=== PATIENT | male | born 1955 | race African-American/Black ===

== ENCOUNTER 2017-10-26 23:02 | Inpatient (IN) | payer MEDICAID ==
[~2017-10-26] VITALS: Ht 182.9 cm; Wt 108.5 kg
[~2017-10-26 23:02] MED LIST: BC FPOW12; CLIN1CAP6 PO; CLON0.2T PO; CORE25TA PO; LISI-363 PO; NORT25CA PO; POTA-243 PO; ULTR50TA PO
[2017-10-26 23:06] VITALS: BP 220/112; PULSE 122; RESP 16; TEMP 98.3; O2SAT 100
[2017-10-26 23:26] VITALS: RESP 19; O2SAT 97
[2017-10-26] MEDS ORDERED: LORazepam 2 MG/ML VIAL IV PUSH ONE (23:30)
[2017-10-26] MEDS: NITROGLYCERIN 0.4 MG SL 25 TABS/BTL SL SCH ×3 (23:32→23:40)
[2017-10-26 23:36] LABS: AUTOMATED NEUTROPHIL # 3.1 TH/MM3 (1.8-7.7); BASOPHIL % 0.7 % (0.0-2.0); EOSINOPHIL % 0.1 % (0.0-4.0); HEMATOCRIT 49.2 % (39.0-51.0); HEMOGLOBIN 16.8 GM/DL (13.0-17.0); LYMPH % 25.4 % (9.0-44.0); LYMPHOCYTE # 1.2 TH/MM3 (1.0-4.8); MEAN CELL VOLUME 97.8 FL (80.0-100.0); MEAN CORPUSCULAR HEMOGLOBIN 33.4 PG (27.0-34.0); MEAN CORPUSCULAR HGB CONC 34.2 % (32.0-36.0); MEAN PLATELET VOLUME 7.4 FL (7.0-11.0); MONO % 7.6 % (0.0-8.0); MONOCYTE # 0.4 TH/MM3 (0-0.9); NEUT % 66.2 % (16.0-70.0); PLATELET COUNT 225 TH/MM3 (150-450); RED BLOOD COUNT 5.03 MIL/MM3 (4.50-5.90); WHITE BLOOD COUNT 4.7 TH/MM3 (4.0-11.0)
--- NOTE | 2017-10-26 23:37 | PD ---
HPI Chief Complaint: Chest Pain Time Seen by Provider: 23:20 Travel History International Travel<30 days: No Contact w/Intl Traveler<30days: No History of Present Illness HPI 61yo M with PMH of alcohol abuse, HTN, CHF presents to the ED with c/o midsternal chest pain today. Said it radiated up left neck. Also with intermittent bilateral arm numbness for 1 week. +Generalized fatigue. Denies any fever, trauma, sob, n/v, abdominal pain, current focal weakness or numbness. Pt is tearful and said he has not taken his medication for 1 month. Suppose to be on clonidine 0.2mg PO. 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 Last alcohol intake was this morning. Pt also has chronic lower back pain and follows with pain management. PFSH Past Medical History Anxiety: Yes Heart Rhythm Problems: No Cancer: No Cardiovascular Problems: Yes (ENLARGED HEART) High Cholesterol: Yes Chest Pain: No Congestive Heart Failure: Yes Endocrine: No Gout: Yes Genitourinary: No Hypertension: Yes Immune Disorder: No Musculoskeletal: No Neurologic: No Psychiatric: No Reproductive: No Respiratory: No Past Surgical History Abdominal Surgery: Yes (UMBILICAL HERNIA REPAIR) Cardiac Surgery: No Ear Surgery: No Endocrine Surgery: No Eye Surgery: No Genitourinary Surgery: No Gynecologic Surgery: No Oral Surgery: No Thoracic Surgery: No Other Surgery: Yes (umbilical hernia,varicose vein) Social History Alcohol Use: Yes Tobacco Use: No Substance Use: No Allergies-Medications (Allergen,Severity, Reaction): Coded Allergies: No Known Allergies (Verified Allergy, Unknown, 10/27/17) Reported Meds & Prescriptions Reported Meds & Active Scripts Active Ultram (Tramadol HCl) 50 Mg Tab 50 Mg PO BID PRN Clindamycin Hcl (Clindamycin HCl) 300 Mg Cap 300 Mg PO QID K-Dur (Potassium Chloride) 10 Meq Tabcr 10 Meq PO DAILY Lisinopril 20 Mg Tab 20 Mg PO DAILY Nortriptyline Hcl (Nortriptyline HCl) 25 Mg Cap 25 Mg PO HS Coreg 25 mg (Carvedilol) 25 Mg Tab 25 Mg PO BID Reported Clonidine Hcl (Clonidine HCl) 0.2 Mg Tab 0.2 Mg PO BID Bc Fast Pain Relief (Udtkbel-Yprjqgdllqvf-Wsbqppgy) Relief Pow Review of Systems Except as stated in HPI: all other systems reviewed are Neg Physical Exam Narrative GENERAL: 61yo M in moderate distress. SKIN: Focused skin assessment warm/dry. HEAD: Atraumatic. Normocephalic. EYES: Pupils equal and round. No scleral icterus. No injection or drainage. ENT: No nasal bleeding or discharge. Mucous membranes pink and moist. NECK: Trachea midline. No JVD. CARDIOVASCULAR: Sinus tachycardia at 120s. RESPIRATORY: No accessory muscle use. Clear to auscultation. Breath sounds equal bilaterally. BACK: +lower back pain L5. GASTROINTESTINAL: Abdomen soft, non-tender, nondistended. MUSCULOSKELETAL: No obvious deformities. No clubbing. No cyanosis. No edema. NEUROLOGICAL: Awake and alert. No obvious cranial nerve deficits. Motor grossly within normal limits in all extremities. Sensation intact. Normal speech. PSYCHIATRIC: Tearful. Data Data Last Documented VS Vital Signs Date Time Temp Pulse Resp B/P (MAP) Pulse Ox O2 Delivery O2 Flow Rate FiO2 10/26/17 23:26 19 97 Room Air 10/26/17 23:06 98.3 122 Orders Orders Basic Metabolic Panel (Bmp) (10/26/17 23:22) B-Type Natriuretic Peptide (10/26/17 23:22) Complete Blood Count With Diff (10/26/17 23:22) Magnesium (Mg) (10/26/17 23:22) Prothrombin Time / Inr (Pt) (10/26/17 23:22) Act Partial Throm Time (Ptt) (10/26/17 23:22) Troponin I (10/26/17 23:22) Chest, Single Ap (10/26/17 23:22) Ecg Monitoring (10/26/17 23:22) Bilateral Bp Monitoring (10/26/17 23:22) Iv Access Insert/Monitor (10/26/17 23:22) Oximetry (10/26/17 23:22) Nitroglycerin Sl (Nitrostat Sl) (10/26/17 23:30) Lorazepam Inj (Ativan Inj) (10/26/17 23:30) Alcohol (Ethanol) (10/26/17 23:22) Cta Thor Abd Aorta W Iv C W3d (10/26/17 23:24) Potassium Chloride (Kcl) (10/27/17 01:00) Sodium Chlor 0.9% 1000 Ml Inj (Ns 1000 M (10/27/17 01:00) Thiamine Inj (Thiamine Inj) (10/27/17 01:00) Iohexol 350 Inj (Omnipaque 350 Inj) (10/27/17 01:18) Aspirin (Aspirin) (10/27/17 02:00) Admit Order (Ed Use Only) (10/27/17 02:23) Labs Laboratory Tests Test 10/26/17 23:27 10/26/17 23:55 White Blood Count 4.7 TH/MM3 Red Blood Count 5.03 MIL/MM3 Hemoglobin 16.8 GM/DL Hematocrit 49.2 % Mean Corpuscular Volume 97.8 FL Mean Corpuscular Hemoglobin 33.4 PG Mean Corpuscular Hemoglobin Concent 34.2 % Red Cell Distribution Width 16.0 % Platelet Count 225 TH/MM3 Mean Platelet Volume 7.4 FL Neutrophils (%) (Auto) 66.2 % Lymphocytes (%) (Auto) 25.4 % Monocytes (%) (Auto) 7.6 % Eosinophils (%) (Auto) 0.1 % Basophils (%) (Auto) 0.7 % Neutrophils # (Auto) 3.1 TH/MM3 Lymphocytes # (Auto) 1.2 TH/MM3 Monocytes # (Auto) 0.4 TH/MM3 Eosinophils # (Auto) 0.0 TH/MM3 Basophils # (Auto) 0.0 TH/MM3 CBC Comment DIFF FINAL Differential Comment Prothrombin Time 9.4 SEC Prothromb Time International Ratio 0.9 RATIO Activated Partial Thromboplast Time 23.9 SEC B-Type Natriuretic Peptide 81 PG/ML Blood Urea Nitrogen 9 MG/DL Creatinine 0.87 MG/DL Random Glucose 95 MG/DL Calcium Level 7.9 MG/DL Magnesium Level 2.1 MG/DL Sodium Level 140 MEQ/L Potassium Level 2.9 MEQ/L Chloride Level 102 MEQ/L Carbon Dioxide Level 27.4 MEQ/L Anion Gap 11 MEQ/L Estimat Glomerular Filtration Rate 108 ML/MIN Troponin I 0.19 NG/ML Ethyl Alcohol Level LESS THAN 3 MG/DL [facility] Medical Decision Making Medical Screen Exam Complete: Yes Emergency Medical Condition: Yes Interpretation(s) EKG: Sinus tachycardia at 123bpm. LAD. Q wave III, aVF which are not new. Differential Diagnosis ACS vs. aortic dissection vs. hypertensive emergency vs. pneumonia vs. CHF exacerbation vs. alcohol withdrawal Narrative Course 61yo M with chest pain radiating to left neck. Pt also said he has intermittent numbness in bilateral arms but not right now for about 1 week. He is noncompliant with his medications. 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 Labs reviewed, no leukocytosis. H/H normal. Hypokalemia at 2.9, replaced orally. Troponin is elevated at 0.19. May be related to rona hypertension, will trend. Pt given sublingual nitro and BP went from 220/112 to 141/79. BNP normal. Pt denies any sob and is saturating at 99-100% on RA. Pt initially tachycardic at 120s and drinks alcohol everyday. Last drink was this morning and pt seems a little tremulous so given ativan 1mg IV. HR improved to 110bpm. Pt reevaluated at bedside and denies any chest pain. Pt also appears mildly dehydrated so given NS IVF. CXR negative. Alcohol less than 3. Pt given thiamine. Magnesium normal. CTA showed no evidence of aortic dissection or aneurysm. Atherosclerosis. Few pulmonary nodules, recommend CT chest in 12 months. Pt given aspirin. Pt had cardiac cath in 2011 that showed severely diminish LV dysfunction and nonsignificant CAD. Pt currently denies any chest pain. Discussed with Dr. Gerber and accepted to her service. Diagnosis Primary Impression: Hypertensive emergency Additional Impression: Chest pain Qualified Codes: R07.9 - Chest pain, unspecified Admitting Information Admitting Physician Requests: Kavitha Ansari DO Oct 26, 2017 23:37
[2017-10-26 23:51] LABS: INTERNATIONAL NORMALIZED RATIO 0.9 RATIO; PROTHROMBIN TIME - PATIENT 9.4 SEC (9.8-11.6)
--- NOTE | 2017-10-26 23:56 | RADRPT ---
EXAM DATE/TIME: 10/26/2017 23:42 [facility] COMPARISON: No previous studies available for comparison. INDICATIONS : Chest pains. MEDICAL HISTORY : None. SURGICAL HISTORY : None. ENCOUNTER: Initial ACUITY: 1 day PAIN SCORE: 0/10 LOCATION: Bilateral chest FINDINGS: Aortic calcification is noted. A single view of the chest demonstrates the lungs to be symmetrically aerated without evidence of mas s, infiltrate or effusion. The cardiomediastinal contours are unremarkable. Osseous structures are intact. CONCLUSION: No acute disease. Teja Stephens MD on October 26, 2017 at 23:53 Board Certified Radiologist. This report was verified electronically.
[2017-10-27] VITALS: BP 186/109; PULSE 102; RESP 16; O2SAT 100
[2017-10-27 00:35] LABS: BICARBONATE 27.4 MEQ/L (21.0-32.0); BLOOD UREA NITROGEN 9 MG/DL (7-18); CALCIUM 7.9 MG/DL (8.5-10.1); CHLORIDE 102 MEQ/L (98-107); CREATININE 0.87 MG/DL (0.60-1.30); GLOMERULAR FILTRATION RATE 108 ML/MIN (>89); GLUCOSE,RANDOM 95 MG/DL (74-106); MAGNESIUM 2.1 MG/DL (1.5-2.5); SODIUM (NA) 140 MEQ/L (136-145); TROPONIN I 0.19 NG/ML (0.02-0.05)
[2017-10-27] MEDS: SODIUM CHLOR 0.9% 1000 ML INJ 1,000 ML IV ONE ×2 (01:00→02:05)
[2017-10-27] MEDS ORDERED: POTASSIUM CHLORIDE 20 MEQ CONTROLLED RELEASE TAB PO ONE (01:00)
[2017-10-27] MEDS ORDERED: THIAMINE INJ 100 MG in SODIUM CHLORIDE 0.9% INJ 100 ML IV ONE (01:00)
[2017-10-27] MEDS ORDERED: IOHEXOL 350 MG/ML 10 ML VIAL (for RAD DIAG) IVCONTRAST ONE (01:18)
--- NOTE | 2017-10-27 01:45 | RADRPT ---
EXAM DATE/TIME: 10/27/2017 01:17 [facility] COMPARISON: No previous studies available for comparison. INDICATIONS : Chest pain, hypertensive, intermittent bilateral upper arm numbness. IV CONTRAST: 100 cc Omnipaque 350 (iohexol) IV RADIATION DOSE: 9.69 CTDIvol (mGy) MEDICAL HISTORY : Cardiovascular disease. Stroke Hypertension. SURGICAL HISTORY : Umbilical hernia repair. ENCOUNTER: Initial ACUITY: 1 day PAIN SCALE: 5/10 LOCATION: Bilateral chest TECHNIQUE: Volumetric scanning was performed using a multi-row detector CT scanner. The data was post processed with a variety of visualization algorithms including full volume maximum intensity projection, multi -planar sliding thin slab reformation, curved planar reformation, and surface rendering techniques. Using automated exposure control and adjustment of the mA and/or kV according to patient size, radiat ion dose was kept as low as reasonably achievable to obtain optimal diagnostic quality images. DICOM format image data is available electronically for review and comparison. FINDINGS: LUNGS: Noncalcified nodule in the right lower lobe measuring 4.4 mm on axial image 57. Tiny right lower lobe 2.7 mm nodule on image 54. Calcified granuloma right upper lobe measuring 4.3 mm on image 35. MEDIASTINUM: No abnormally enlarged lymph nodes by CT criteria. No axillary or hilar abnormalities are identified. ABDOMEN: The liver and spleen are free of focal defects. The gallbladder and pancreas demonstrate no abnormali ty. The adrenal glands are normal. The kidneys demonstrate no evidence of solid renal mass or hydrone phrosis. No free fluid or abdominal masses are identified. No para-aortic adenopathy is seen. Small f at containing umbilical hernia. PELVIS: No evidence of free fluid or pelvic mass. No abnormally enlarged inguinal or retroperitoneal lymph no beulah are present. The bladder is unremarkable. THORACIC AORTA: There is no evidence for aneurysm. Atherosclerotic calcifications of the aorta are noted. Aberrant ri ght subclavian artery is seen. ABDOMINAL AORTA: The aorta is normal in caliber without aneurysm or dissection. The renal arteries are patent bilater ally. The proximal celiac and superior mesenteric arteries are patent and normal in diameter. PELVIC VESSELS: The internal iliac and external iliac vessels are patent without aneurysm or stenosis. CONCLUSION: 1. No evidence for aortic dissection or aneurysm. 2. Atherosclerosis. 3. Aberrant right subclavian artery. 4. A few scattered pulmonary nodules are present. Followup CT chest in 12 months recommended. Teja Stephens MD on October 27, 2017 at 1:41 Board Certified Radiologist. This report was verified electronically.
[2017-10-27] MEDS ORDERED: ASPIRIN 325 MG TAB PO ONE (02:00)
[2017-10-27] MEDS ORDERED: NALOXONE HCL 0.4 MG/ML AMP IV PUSH PRN (02:30)
[2017-10-27] MEDS ORDERED: SODIUM CHLORIDE 0.9% FLUSH 10 ML FLUSH IV FLUSH PRN (02:30)
[2017-10-27 03:00] VITALS: BP 141/79; PULSE 98; RESP 16; O2SAT 100
[2017-10-27] MEDS ORDERED: NITROGLYCERIN 0.4 MG SL 25 TABS/BTL SL PRN (03:00)
[2017-10-27] MEDS ORDERED: ENOXAPARIN SODIUM 120 MG/0.8 ML SYRINGE SQ ONE (03:00)
[2017-10-27 06:28] LABS: TROPONIN I 0.24 NG/ML (0.02-0.05)
[2017-10-27] MEDS ORDERED: CLON0.2T PO (06:31)
[2017-10-27] MEDS ORDERED: LISI-515 PO (06:31)
[2017-10-27] MEDS ORDERED: CORE25TA PO (06:31)
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
[2017-10-27 08:10] VITALS: BP 182/89; PULSE 104; RESP 20; TEMP 98.8; O2SAT 98
[2017-10-27] MEDS ORDERED: DILA4TAB10 PO (10:13)
[2017-10-27] MEDS ORDERED: MORP1TAB25 PO (10:13)
[2017-10-27] MEDS: ASPIRIN EC 325 MG TABEC PO SCH (10:14)
[2017-10-27] MEDS: POTASSIUM CHLORIDE 10 MEQ CAP PO SCH (10:14)
[2017-10-27] MEDS: LISINOPRIL 20 MG TAB PO SCH (10:14)
[2017-10-27] MEDS: CARVEDILOL 12.5 MG TAB PO SCH ×2 (10:14→20:33)
[2017-10-27] MEDS: FUROSEMIDE 40 MG/4 ML VIAL IV PUSH SCH ×2 (10:14→18:37)
[2017-10-27] MEDS: cloNIDine HCL 0.2 MG TAB PO SCH ×2 (10:15→20:33)
[2017-10-27] MEDS: SODIUM CHLORIDE 0.9% FLUSH 10 ML FLUSH IV FLUSH SCH ×2 (10:15→20:34)
[2017-10-27 10:18] VITALS: BP 175/92; PULSE 100; RESP 24; O2SAT 100
[2017-10-27] MEDS ORDERED: MORPHINE SULFATE 30 MG CONTROLLED RELEASE TAB PO ONE (10:45)
[2017-10-27] MEDS: HYDROmorphone HCL 4 MG TAB PO PRN ×2 (11:47→18:43)
[2017-10-27 15:26] LABS: BICARBONATE 28.7 MEQ/L (21.0-32.0); CALCIUM 7.9 MG/DL (8.5-10.1); MAGNESIUM 1.9 MG/DL (1.5-2.5)
[2017-10-27 15:47] LABS: TROPONIN I 0.21 NG/ML (0.02-0.05)
[2017-10-27 16:00] VITALS: BP 151/82; PULSE 85; RESP 20; TEMP 98; O2SAT 97
--- NOTE | 2017-10-27 18:05 | MB ---
cc: MARIA C XIAO MD DATE OF CONSULTATION: 10/27/2017 REASON FOR CONSULTATION: HISTORY OF PRESENT ILLNESS: The patient is a 61-year-old black homeless male with a history of congestive heart failure, cardiomyopathy, with severe ventricular systolic function, hypertension, chronic kidney disease, presented with severe hypertension, cough, shortness of breath, lower extremity edema. She denies any recent chest pain. PAST MEDICAL HISTORY Positive for congestive heart failure with ejection fraction of 20% by echo, hypertension, chronic kidney disease, depression, gout, obesity, chronic back pain, right lower extremity cellulitis. PAST SURGICAL HISTORY: Umbilical hernia. MEDICATIONS 1. Morphine. 2. Aspirin. 3. Carvedilol. 4. Clonidine. 5. Lisinopril. 6. Furosemide. 7. Potassium. ALLERGIES None. SOCIAL HISTORY The patient does not smoke. He drinks alcohol heavily. He denies using drugs. REVIEW OF SYSTEMS: Negative for heart disease, otherwise negative. PHYSICAL EXAMINATION VITAL SIGNS: Blood pressure of 182/89, pulse 104 regular. HEENT: 2+ carotid upstrokes, no bruits. LUNGS: Clear. HEART: Regular with no murmurs. ABDOMEN: Soft, no bruits. EXTREMITIES: Trace edema. 1+ distal pulses. EKG: Reviewed and showed sinus tachycardia, left axis, inferior Q-wave. LABORATORY DATA: Hemoglobin 16.8, potassium 2.9, creatinine 0.87, troponin 0.19, 0.24. BNP 81. DIAGNOSIS 1. Chronic systolic congestive heart failure. 2. Cardiomyopathy. 3. Severe hypertension. 4. Mildly abnormal troponin. 5. Chronic kidney disease. 6. Depression. 7. Homelessness. DISPOSITION: Mr. Booker will be monitored on telemetry. His troponins are slightly elevated but it is not trending significantly in either direction. Will obtain echocardiogram to evaluate his left ventricular function. I recommend to continue therapy for congestive heart failure including KINGSLEY inhibitor, beta-adam. His BNP is slow and is now consistent with acute CHF exacerbation. I will follow him for cardiology during the hospitalization. Maria C Xiao MD OQ/ANGELINE /4:37 PM /5:42 PM
--- NOTE | 2017-10-27 18:56 | EKG ---
Date Performed: 10/26/2017 Time Performed: 23:11:27 PTAGE: 61 years EKG: SINUS TACHYCARDIA WITH OCCASIONAL VENTRICULAR PREMATURE COMPLEXES INFERIOR MYOCARDIAL INFAR CTION When compared to previous tracing, sinus rate is faster. Previously seen anterior T wave change s are less prominant. ABNORMAL ECG PREVIOUS TRACING : 06/17/2012 03.15.12 DOCTOR: Blake Castro Interpretating Date/Time 10/27/2017 18:55:36
--- NOTE | 2017-10-27 18:58 | EKG ---
Date Performed: 10/27/2017 Time Performed: 05:41:51 PTAGE: 61 years EKG: SINUS TACHYCARDIA POSSIBLE LEFT ATRIAL ENLARGEMENT INTRAVENTRICULAR CONDUCTION DELAY INFERI OR MYOCARDIAL INFARCTION When compared to previous tracing, sinus rate is slower. ABNORMAL ECG PREVIOUS TRACING : 10/26/2017 23.11.27 DOCTOR: Blake Castro Interpretating Date/Time 10/27/2017 18:57:05
[2017-10-27 19:55] VITALS: BP 151/85; PULSE 90; RESP 18; TEMP 98.4; O2SAT 98
[2017-10-27] MEDS: MORPHINE SULFATE 30 MG CONTROLLED RELEASE TAB PO SCH (20:33)
[2017-10-28] VITALS (10 sets, daily range): BP systolic 118–149; BP diastolic 67–86; PULSE 63–77; RESP 15–18; TEMP 97.5–98.4; O2SAT 97–100
[2017-10-28] MEDS: HYDROmorphone HCL 4 MG TAB PO PRN ×4 (01:52→22:35)
[2017-10-28] MEDS ORDERED: POTASSIUM CHLORIDE 20 MEQ CONTROLLED RELEASE TAB PO ONE (05:45)
[2017-10-28] MEDS: POTASSIUM CHLOR 20 MEQ PREMIX 100 ML IV SCH ×2 (05:58→08:39)
[2017-10-28] MEDS: POTASSIUM CHLORIDE 10 MEQ CAP PO SCH (08:40)
[2017-10-28] MEDS: cloNIDine HCL 0.2 MG TAB PO SCH ×2 (08:40→20:38)
[2017-10-28] MEDS: ASPIRIN EC 325 MG TABEC PO SCH (08:41)
[2017-10-28] MEDS: CARVEDILOL 12.5 MG TAB PO SCH ×2 (08:41→20:38)
[2017-10-28] MEDS: SODIUM CHLORIDE 0.9% FLUSH 10 ML FLUSH IV FLUSH SCH ×2 (08:42→20:39)
[2017-10-28] MEDS: FUROSEMIDE 40 MG/4 ML VIAL IV PUSH SCH ×2 (08:42→18:58)
[2017-10-28] MEDS: MORPHINE SULFATE 30 MG CONTROLLED RELEASE TAB PO SCH ×2 (08:42→20:39)
[2017-10-28] MEDS: LISINOPRIL 20 MG TAB PO SCH (08:43)
[2017-10-28 10:09] LABS: AUTOMATED NEUTROPHIL # 2.3 TH/MM3 (1.8-7.7); BASOPHIL % 0.6 % (0.0-2.0); EOSINOPHIL % 0.5 % (0.0-4.0); HEMATOCRIT 42.1 % (39.0-51.0); HEMOGLOBIN 14.5 GM/DL (13.0-17.0); LYMPH % 23.3 % (9.0-44.0); LYMPHOCYTE # 0.8 TH/MM3 (1.0-4.8); MEAN CELL VOLUME 98.3 FL (80.0-100.0); MEAN CORPUSCULAR HEMOGLOBIN 33.9 PG (27.0-34.0); MEAN CORPUSCULAR HGB CONC 34.5 % (32.0-36.0); MEAN PLATELET VOLUME 7.5 FL (7.0-11.0); MONO % 12.7 % (0.0-8.0); MONOCYTE # 0.5 TH/MM3 (0-0.9); NEUT % 62.9 % (16.0-70.0); PLATELET COUNT 164 TH/MM3 (150-450); RED BLOOD COUNT 4.28 MIL/MM3 (4.50-5.90); RED CELL DISTRIBUTION WIDTH 15.5 % (11.6-17.2); WHITE BLOOD COUNT 3.6 TH/MM3 (4.0-11.0)
[2017-10-28 10:50] LABS: BICARBONATE 26.7 MEQ/L (21.0-32.0); CALCIUM 8.3 MG/DL (8.5-10.1); CREATININE 1.11 MG/DL (0.60-1.30)
[2017-10-28] MEDS ORDERED: ONDANSETRON HCL 4 MG/2 ML VIAL IV PUSH PRN (12:30)
[2017-10-28] MEDS ORDERED: ACETAMINOPHEN 325 MG TAB PO PRN (12:30)
[2017-10-28] MEDS ORDERED: DOCUSATE SODIUM 50 MG/SENNA 8.6 MG TAB PO PRN (12:30)
--- NOTE | 2017-10-28 12:30 | HHI.PR ---
Subjective Remarks Follow-up non-ST elevation IA/acute on chronic systolic CHF exacerbation 10/28/17-patient seen and examined, patient reports improvement of shortness of breath and denies any chest pain Objective Vitals Vital Signs Date Time Temp Pulse Resp B/P (MAP) Pulse Ox O2 Delivery O2 Flow Rate FiO2 10/28/17 08:26 98.3 67 16 144/74 (97) 98 10/28/17 07:52 67 10/28/17 04:00 97.8 65 16 149/86 (107) 97 10/28/17 04:00 68 10/28/17 00:00 98.4 74 18 129/79 (96) 98 10/28/17 00:00 68 10/27/17 19:55 98.4 90 18 151/85 (107) 98 10/27/17 16:00 98.0 85 20 151/82 (105) 97 I/O 10/27/17 10/27/17 10/27/17 10/28/17 10/28/17 10/28/17 07:00 15:00 23:00 07:00 15:00 23:00 Intake Total 480 ml Output Total 1400 ml Balance 480 ml -1400 ml Intake Oral 480 ml Output Urine Total 1400 ml # Voids 3 # Bowel Movements 3 Result Diagram: 10/28/17 0935 10/28/17 0935 Imaging Last Impressions Aorta CTA 10/26/172323 Signed Impressions: Service Date/Time: Friday, October 27, 2017 01:17 - CONCLUSION: 1. No evidence for aortic dissection or aneurysm. 2. Atherosclerosis. 3. Aberrant right subclavian artery. 4. A few scattered pulmonary nodules are present. Followup CT chest in 12 months recommended. Teja Stephens MD Chest X-Ray 10/26/172321 Signed Impressions: Service Date/Time: Thursday, October 26, 2017 23:42 - CONCLUSION: No acute disease. Teja Stephens MD Objective Remarks GENERAL: NAD SKIN: Warm and dry. HEAD: Normocephalic. EYES: No scleral icterus. No injection or drainage. NECK: Supple, trachea midline. No JVD or lymphadenopathy. CARDIOVASCULAR: Regular rate and rhythm without murmurs, gallops, or rubs. RESPIRATORY: Breath sounds equal bilaterally. No accessory muscle use. GASTROINTESTINAL: Abdomen soft, non-tender, nondistended. MUSCULOSKELETAL: No cyanosis, or edema. BACK: Nontender without obvious deformity. No CVA tenderness. Procedures None A/P Problem List: (1) Non-ST elevation IA (NSTEMI) ICD Code: I21.4 - Non-ST elevation (NSTEMI) myocardial infarction (2) Acute on chronic systolic (congestive) heart failure ICD Code: I50.23 - Acute on chronic systolic (congestive) heart failure Assessment and Plan 61-year-old man with Non-ST elevation IA? Elevated Troponin I likely 2/2 CHF exacerbation 2D echo pending Acute on chronic systolic CHF exacerbation Continue with IV diuretic, KINGSLEY inhibitor and beta adam Appreciate input from cardiology pending 2-D echo CAD Continue aspirin DVT prophylaxis: Bilateral SCDs Alex Wong MD Oct 28, 2017 12:30
--- NOTE | 2017-10-28 16:37 | PD.CARD.PN ---
Subjective Subjective Remarks No CP or SOB, c/o LE pain related to previous trauma Objective Medications Current Medications Medications (Trade) Dose Ordered Sig/Stefano Route Start Time Stop Time Status Last Admin (NS Flush) 2 ml UNSCH PRN IV FLUSH 10/27/17 02:30 (NS Flush) 2 ml BID IV FLUSH 10/27/17 09:00 10/28/17 08:42 (Narcan Inj) 0.4 mg UNSCH PRN IV PUSH 10/27/17 02:30 (Nitrostat Sl) 0.4 mg Q5M PRN SL 10/27/17 03:00 (Ecotrin Ec) 325 mg DAILY PO 10/27/17 09:00 10/28/17 08:41 (Coreg) 25 mg BID PO 10/27/17 09:00 10/28/17 08:41 (Catapres) 0.2 mg BID PO 10/27/17 09:00 10/28/17 08:40 (Prinivil) 20 mg DAILY PO 10/27/17 09:00 10/28/17 08:43 (Lasix Inj) 20 mg BID@ IV PUSH 10/27/17 09:00 10/28/17 08:42 (Dilaudid) 4 mg Q6H PRN PO 10/27/17 10:45 10/28/17 16:17 (Oramorph Sr) 30 mg BID PO 10/27/17 21:00 10/28/17 08:42 (KCl) 20 meq DAILY PO 10/29/17 09:00 (Tylenol) 650 mg Q4H PRN PO 10/28/17 12:30 (Zofran Inj) 4 mg Q6H PRN IV PUSH 10/28/17 12:30 (Darlene-Colace) 1 tab BID PRN PO 10/28/17 12:30 Vital Signs / I&O Vital Signs Date Time Temp Pulse Resp B/P (MAP) Pulse Ox O2 Delivery O2 Flow Rate FiO2 10/28/17 12:08 97.5 72 17 118/70 (86) 99 10/28/17 08:26 98.3 67 16 144/74 (97) 98 10/28/17 07:52 67 10/28/17 04:00 97.8 65 16 149/86 (107) 97 10/28/17 04:00 68 10/28/17 00:00 98.4 74 18 129/79 (96) 98 10/28/17 00:00 68 10/27/17 19:55 98.4 90 18 151/85 (107) 98 I/O 10/27/17 10/27/17 10/27/17 10/28/17 10/28/17 10/28/17 07:00 15:00 23:00 07:00 15:00 23:00 Intake Total 480 ml Output Total 1400 ml Balance 480 ml -1400 ml Intake Oral 480 ml Output Urine Total 1400 ml # Voids 3 # Bowel Movements 3 Physical Exam GENERAL: In mild distress sec to LE pain SKIN: Warm and dry. HEAD: Normocephalic. EYES: No scleral icterus. No injection or drainage. NECK: Supple, trachea midline. No JVD or lymphadenopathy. CARDIOVASCULAR: Regular rate and rhythm without murmurs, gallops, or rubs. RESPIRATORY: Breath sounds equal bilaterally. No accessory muscle use. GASTROINTESTINAL: Abdomen soft, non-tender, nondistended. MUSCULOSKELETAL: No cyanosis, or edema. Laboratory Laboratory Tests Test 10/28/17 09:35 White Blood Count 3.6 TH/MM3 Red Blood Count 4.28 MIL/MM3 Hemoglobin 14.5 GM/DL Hematocrit 42.1 % Mean Corpuscular Volume 98.3 FL Mean Corpuscular Hemoglobin 33.9 PG Mean Corpuscular Hemoglobin Concent 34.5 % Red Cell Distribution Width 15.5 % Platelet Count 164 TH/MM3 Mean Platelet Volume 7.5 FL Neutrophils (%) (Auto) 62.9 % Lymphocytes (%) (Auto) 23.3 % Monocytes (%) (Auto) 12.7 % Eosinophils (%) (Auto) 0.5 % Basophils (%) (Auto) 0.6 % Neutrophils # (Auto) 2.3 TH/MM3 Lymphocytes # (Auto) 0.8 TH/MM3 Monocytes # (Auto) 0.5 TH/MM3 Eosinophils # (Auto) 0.0 TH/MM3 Basophils # (Auto) 0.0 TH/MM3 CBC Comment DIFF FINAL Differential Comment Blood Urea Nitrogen 7 MG/DL Creatinine 1.11 MG/DL Random Glucose 188 MG/DL Calcium Level 8.3 MG/DL Sodium Level 136 MEQ/L Potassium Level 3.4 MEQ/L Chloride Level 100 MEQ/L Carbon Dioxide Level 26.7 MEQ/L Anion Gap 9 MEQ/L Estimat Glomerular Filtration Rate 82 ML/MIN Assessment and Plan Problem List: (1) Chronic CHF ICD Codes: I50.9 - Heart failure, unspecified (2) Cardiomyopathy ICD Codes: I42.9 - Cardiomyopathy, unspecified (3) Troponin I above reference range ICD Codes: R74.8 - Abnormal levels of other serum enzymes (4) Hypertension ICD Codes: I10 - Hypertension Status: Acute (5) Homelessness ICD Codes: Z59.0 - Homelessness (6) ETOH abuse ICD Codes: F10.10 - Alcohol abuse, uncomplicated Assessment and Plan No angina or CHF exacerbation. Continue tx for CHF including KINGSLEY-I and beta adam. No evidence of ACS at this time. Will check echo. Increase activity. Anticipate discharge soon. Maria C Xiao MD Oct 28, 2017 16:37
--- NOTE | 2017-10-28 18:23 | ECHRPT ---
Indication: Unspecified combined systolic (congestive) and diastolic (congestive) heart failure CONCLUSIONS The left ventricular systolic function is mildly reduced with an estimated ejection fraction in the range of 45- 50%. Wall thickness is measured at the upper limits of normal. Moderately dilated left ventricle. Diffuse calcification of the aortic valve. Mild aortic valve regurgitation. Mild aortic stenosis. BP: 141 / 79 HR: 98 Rhythm: Sinus MEASUREMENTS (Male / Female) Normal Values Technical Quality: 2D ECHO LV Diastolic Diameter PLAX 6.6 cm 4.2 - 5.9 / 3.9 - 5.3 cm LV Systolic Diameter PLAX 5.5 cm IVS Diastolic Thickness 1.2 cm 0.6 - 1.0 / 0.6 - 0.9 cm LVPW Diastolic Thickness 1.2 cm 0.6 - 1.0 / 0.6 - 0.9 cm LV Relative Wall Thickness 0.4 LVOT Diameter 2.4 cm M-MODE Aortic Root Diameter MM 3.4 cm LA Systolic Diameter MM 3.1 cm LA Ao Ratio MM 0.9 AV Cusp Separation MM 1.5 cm DOPPLER AV Peak Velocity 282.8 cm/s AV Peak Gradient 32.0 mmHg AV Mean Gradient 14.0 mmHg AV Velocity Time Integral 42.0 cm LVOT Peak Velocity 88.8 cm/s LVOT Peak Gradient 3.2 mmHg AV Area Cont Eq pk 1.4 cm Mitral E Point Velocity 95.3 cm/s Mitral A Point Velocity 113.0 cm/s Mitral E to A Ratio 0.8 LV E' Lateral Velocity 7.2 cm/s Mitral E to LV E' Lateral Ratio 13.2 LV E' Septal Velocity 5.7 cm/s Mitral E to LV E' Septal Ratio 16.9 FINDINGS LEFT VENTRICLE The left ventricular systolic function is mildly reduced with an estimated ejection fraction in the range of 45- 50%. Wall thickness is measured at the upper limits of normal. Moderately dilated left ventricle. RIGHT VENTRICLE Normal right ventricular size and systolic function. LEFT ATRIUM The left atrial size is normal. RIGHT ATRIUM The right atrial size is normal. ATRIAL SEPTUM Normal atrial septal thickness without atrial level shunting by limited color doppler interrogation. AORTA The aortic root and proximal ascending aorta are normal in size on limited imaging. MITRAL VALVE Structurally normal mitral valve. No mitral valve stenosis or regurgitation. AORTIC VALVE Diffuse calcification of the aortic valve. Mild aortic valve regurgitation. Aortic valve area is 1.4 cm. TRICUSPID VALVE Structurally normal tricuspid valve. No tricuspid valve stenosis or regurgitation. PULMONARY VALVE The pulmonary valve is not well visualized. VESSELS The inferior vena cava is normal in size. PERICARDIUM No pericardial effusion. Maria C Xiao MD, FACC (Electronically Signed) Final Date:28 October 2017 18:22
--- NOTE | 2017-10-28 22:21 | EKG ---
Date Performed: 10/27/2017 Time Performed: 11:15:22 PTAGE: 61 years EKG: Sinus rhythm INFERIOR MYOCARDIAL INFARCTION ABNORMAL ECG PREVIOUS TRACING : 10/27/2017 05.41 Since the prior tracing, there has been no significant hernandez DOCTOR: Umesh Gorman Interpretating Date/Time 10/28/2017 22:18:30
[2017-10-29] VITALS: BP 123/74; PULSE 61; PULSE 63; RESP 15; TEMP 97.5; O2SAT 98
[2017-10-29 04:00] VITALS: BP 131/80; PULSE 56; PULSE 64; RESP 20; TEMP 97.7; O2SAT 100
[2017-10-29] MEDS: HYDROmorphone HCL 4 MG TAB PO PRN ×2 (04:34→12:10)
[2017-10-29 07:28] LABS: BICARBONATE 26.6 MEQ/L (21.0-32.0); CALCIUM 7.7 MG/DL (8.5-10.1); CREATININE 1.08 MG/DL (0.60-1.30)
[2017-10-29 08:00] VITALS: PULSE 64
[2017-10-29 08:08] VITALS: BP 125/75; PULSE 63; RESP 18; TEMP 98.4; O2SAT 98
[2017-10-29] MEDS ORDERED: POTASSIUM CHLORIDE 10 MEQ CAP PO SCH (09:00)
[2017-10-29] MEDS: MORPHINE SULFATE 30 MG CONTROLLED RELEASE TAB PO SCH (10:20)
[2017-10-29] MEDS: ASPIRIN EC 325 MG TABEC PO SCH (10:21)
[2017-10-29] MEDS: cloNIDine HCL 0.2 MG TAB PO SCH (10:21)
[2017-10-29] MEDS: LISINOPRIL 20 MG TAB PO SCH (10:21)
[2017-10-29] MEDS: CARVEDILOL 12.5 MG TAB PO SCH (10:21)
[2017-10-29] MEDS: SODIUM CHLORIDE 0.9% FLUSH 10 ML FLUSH IV FLUSH SCH (10:33)
[2017-10-29] MEDS: FUROSEMIDE 40 MG/4 ML VIAL IV PUSH SCH (10:33)
[2017-10-29] MEDS ORDERED: ASPI325T33 PO (10:57)
[2017-10-29] MEDS ORDERED: POTA10CA PO (10:57)
[2017-10-29] MEDS ORDERED: LISI-515 PO (10:57)
[2017-10-29] MEDS ORDERED: FURO20TA PO (10:57)
[2017-10-29] MEDS ORDERED: FAMO20TA2 PO (10:57)
[2017-10-29] MEDS ORDERED: CORE25TA PO (10:57)
[2017-10-29] MEDS ORDERED: CLON0.2T PO (10:57)
[2017-10-29] MEDS ORDERED: POTASSIUM CHLORIDE 10 MEQ CONTROLLED RELEASE TAB PO ONE (11:00)
[2017-10-29] MEDS ORDERED: FAMOTIDINE 20 MG TAB PO SCH (11:00)
--- NOTE | 2017-10-29 11:00 | HHI.PR ---
Subjective Remarks Follow-up non-ST elevation LA/acute on chronic systolic CHF exacerbation 10/28/17-patient seen and examined, patient reports improvement of shortness of breath and denies any chest pain 10/29/17-patient seen and examined, denies any shortness of breath or chest pain. Was seen ambulate with physical therapy without any assistance and has no complaint. Would like to be discharged home. Objective Vitals Vital Signs Date Time Temp Pulse Resp B/P (MAP) Pulse Ox O2 Delivery O2 Flow Rate FiO2 10/29/17 08:08 98.4 63 18 125/75 (92) 98 10/29/17 04:00 56 10/29/17 04:00 97.7 64 20 131/80 (97) 100 10/29/17 04:00 Room Air 10/29/17 00:00 63 10/29/17 00:00 97.5 61 15 123/74 (90) 98 10/29/17 00:00 Room Air 10/28/17 20:20 98.0 63 15 128/76 (93) 98 10/28/17 20:00 68 10/28/17 20:00 Room Air 10/28/17 16:08 98.2 77 17 128/67 (87) 100 10/28/17 16:00 Room Air 10/28/17 15:48 67 10/28/17 12:08 97.5 72 17 118/70 (86) 99 10/28/17 12:00 Room Air 10/28/17 11:55 75 I/O 10/28/17 10/28/17 10/28/17 10/29/17 10/29/17 10/29/17 07:00 15:00 23:00 07:00 15:00 23:00 Intake Total 840 ml Output Total 1400 ml 500 ml Balance -1400 ml 340 ml Intake Oral 840 ml Output Urine Total 1400 ml 500 ml # Bowel Movements 1 Result Diagram: 10/28/17 0935 10/29/17 0430 Imaging Last Impressions Aorta CTA 10/26/17 4810 Signed Impressions: Service Date/Time: Friday, October 27, 2017 01:17 - CONCLUSION: 1. No evidence for aortic dissection or aneurysm. 2. Atherosclerosis. 3. Aberrant right subclavian artery. 4. A few scattered pulmonary nodules are present. Followup CT chest in 12 months recommended. Teja Stephens MD Chest X-Ray 10/26/17 0571 Signed Impressions: Service Date/Time: Thursday, October 26, 2017 23:42 - CONCLUSION: No acute disease. Teja Stephens MD Objective Remarks GENERAL: NAD SKIN: Warm and dry. HEAD: Normocephalic. EYES: No scleral icterus. No injection or drainage. NECK: Supple, trachea midline. No JVD or lymphadenopathy. CARDIOVASCULAR: Regular rate and rhythm without murmurs, gallops, or rubs. RESPIRATORY: Breath sounds equal bilaterally. No accessory muscle use. GASTROINTESTINAL: Abdomen soft, non-tender, nondistended. MUSCULOSKELETAL: No cyanosis, or edema. BACK: Nontender without obvious deformity. No CVA tenderness. Procedures None A/P Problem List: (1) Acute on chronic systolic (congestive) heart failure ICD Code: I50.23 - Acute on chronic systolic (congestive) heart failure Assessment and Plan 61-year-old man with Non-ST elevation LA-unlikely Elevated Troponin I likely 2/2 CHF exacerbation 2D echo with EF 45-50% Acute on chronic systolic CHF exacerbation-resolved Change to by mouth Lasix and continue with KINGSLEY inhibitor and beta adam Appreciate input from cardiology 2-D echo with EF 45-50% CAD Continue aspirin DVT prophylaxis: Bilateral SCDs Alex Wong MD Oct 29, 2017 11:00
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
[2017-10-29 12:00] VITALS: PULSE 65
[2017-10-29 12:08] VITALS: BP 110/66; PULSE 96; RESP 18; TEMP 97.8; O2SAT 96
[2017-10-29] MEDS ORDERED: FUROSEMIDE 20 MG TAB PO SCH (18:00)
== END 2017-10-29 12:50 | disposition home health service (06) | DRG 291 ==
LOC: NEPE 23:02 → NEDA 10-27 02:24 → NEDH 10-27 06:33 → NEDA 10-27 14:56 → NEDH 10-27 19:49 → N04A 10-27 19:56
PROVIDERS: ADMIT Hospitalist; ATTEND Hospitalist
DX: I13.0 Hypertensive heart and chronic kidney disease with heart failure and stage 1 through stage 4 chronic kidney disease, or unspecified chronic kidney disease (principal); I50.43 Acute on chronic combined systolic (congestive) and diastolic (congestive) heart failure; E86.0 Dehydration; L03.115 Cellulitis of right lower limb; I16.1 Hypertensive emergency; I42.9 Cardiomyopathy, unspecified; M10.9 Gout, unspecified; R91.8 Other nonspecific abnormal finding of lung field; I25.118 Atherosclerotic heart disease of native coronary artery with other forms of angina pectoris; E87.6 Hypokalemia; Z91.14 Patient's other noncompliance with medication regimen; E78.00 Pure hypercholesterolemia, unspecified; F41.9 Anxiety disorder, unspecified; G89.29 Other chronic pain; M54.5 Low back pain; N18.2 Chronic kidney disease, stage 2 (mild); F32.9 Major depressive disorder, single episode, unspecified; E66.9 Obesity, unspecified; Z59.0 Homelessness
CPT/HCPCS: 71045; 71275; 74174; 80048; 80307; 82550; 83735; 83880; 84484; 85025; 85610; 85730; 93005; 93306; 96365; 96375; J1650; J1940; J2060; J3411; J3480; J7030; Q9967

== ENCOUNTER 2018-02-01 19:03 | Inpatient (IN) | payer MEDICAID ==
[~2018-02-01] VITALS: Ht 182.9 cm; Wt 114.6 kg
[~2018-02-01 19:03] MED LIST changes: +ASPI325T33 PO; -BC FPOW12; -CLIN1CAP6 PO; +DILA4TAB10 PO; +FAMO20TA2 PO; +FURO20TA PO; -LISI-363 PO; +LISI-515 PO; +MORP1TAB25 PO; -NORT25CA PO; -POTA-243 PO; +POTA10CA PO; -ULTR50TA PO
[2018-02-01 19:11] VITALS: BP 199/93; PULSE 66; RESP 19; O2SAT 95
[2018-02-01] MEDS ORDERED: methylPREDNISolone SOD SUCC 125 MG/2 ML VIAL IM ONE (20:00)
[2018-02-01] MEDS ORDERED: SODIUM CHLORIDE 0.9% FLUSH 10 ML FLUSH IV FLUSH PRN ×3 (20:00→22:00)
[2018-02-01] MEDS ORDERED: diphenhydrAMINE HCL 50 MG/ML VIAL IVP ONE (20:00)
--- NOTE | 2018-02-01 20:02 | PD ---
HPI Chief Complaint: Facial Pain or Swelling Time Seen by Provider: 19:45 Travel History International Travel<30 days: No Contact w/Intl Traveler<30days: No Traveled to known affect area: No History of Present Illness HPI 62-year-old male here for evaluation of upper lip swelling. Symptoms started yesterday evening and has been persistent. He denies tongue swelling. No respiratory difficulties or difficulty swallowing. He is on an KINGSLEY inhibitor. Denies trauma. No pain. PFSH Past Medical History Anxiety: Yes Heart Rhythm Problems: No Cancer: No Cardiovascular Problems: Yes High Cholesterol: Yes Chest Pain: No Congestive Heart Failure: Yes Endocrine: No Gout: Yes Genitourinary: No Hypertension: Yes Immune Disorder: No Musculoskeletal: No Neurologic: No Psychiatric: No Reproductive: No Respiratory: No Past Surgical History Abdominal Surgery: Yes (UMBILICAL HERNIA REPAIR) Cardiac Surgery: No Ear Surgery: No Endocrine Surgery: No Eye Surgery: No Genitourinary Surgery: No Gynecologic Surgery: No Oral Surgery: No Thoracic Surgery: No Other Surgery: Yes (umbilical hernia,varicose vein) Social History Alcohol Use: Yes Tobacco Use: No Substance Use: No Allergies-Medications (Allergen,Severity, Reaction): Coded Allergies: No Known Allergies (Verified Allergy, Unknown, 02/01/18) Reported Meds & Prescriptions Reported Meds & Active Scripts Active Aspirin EC (Aspirin) 325 Mg Tabdr 325 Mg PO DAILY Furosemide 20 Mg Tab 20 Mg PO BID@ Potassium Chloride ER (Potassium Chloride) 10 Meq Cap 20 Meq PO DAILY Clonidine (Clonidine HCl) 0.2 Mg Tab 0.2 Mg PO BID Lisinopril 20 Mg Tab 20 Mg PO DAILY Reported Morphine ER (Morphine Sulfate) 30 Mg Tab 30 Mg PO BID Dilaudid (Hydromorphone HCl) 4 Mg Tab 4 Mg PO Q6H PRN Review of Systems Except as stated in HPI: all other systems reviewed are Neg Physical Exam Narrative GENERAL: Well-developed, well-nourished, awake, alert, no apparent distress. SKIN: Focused skin assessment warm/dry. HEAD: Atraumatic. Normocephalic. EYES: Pupils equal and round. No scleral icterus. No injection or drainage. ENT: Mucous membranes pink and moist. Significant upper lip swelling. Poor dentition. No fluctuance or induration. No tongue or lower lip swelling. Normal-appearing pharynx. No drooling or stridor. No trismus. NECK: Trachea midline. No JVD. CARDIOVASCULAR: Regular rate and rhythm. RESPIRATORY: No accessory muscle use. Clear to auscultation. Breath sounds equal bilaterally. GASTROINTESTINAL: Abdomen soft, non-tender, nondistended. MUSCULOSKELETAL: No obvious deformities. No clubbing. No cyanosis. No edema. NEUROLOGICAL: Awake and alert. No obvious cranial nerve deficits. Motor grossly within normal limits. Normal speech. PSYCHIATRIC: Appropriate mood and affect; insight and judgment normal. Data Data Last Documented VS Vital Signs Date Time Temp Pulse Resp B/P (MAP) Pulse Ox O2 Delivery O2 Flow Rate FiO2 02/01/18 19:11 66 19 199/93 (128) 95 Orders Orders Ecg Monitoring (02/01/18 19:48) Iv Access Insert/Monitor (02/01/18 19:48) Oximetry (02/01/18 19:48) Diphenhydramine Inj (Benadryl Inj) (02/01/18 20:00) Methylprednisolone So Succ Inj (Solumedr (02/01/18 20:00) Sodium Chloride 0.9% Flush (Ns Flush) (02/01/18 20:00) Complete Blood Count With Diff (02/01/18 19:58) Comprehensive Metabolic Panel (02/01/18 19:58) Prothrombin Time / Inr (Pt) (02/01/18 19:58) Act Partial Throm Time (Ptt) (02/01/18 19:58) Sodium Chloride 0.9% Flush (Ns Flush) (02/01/18 20:00) Methylprednisolone So Succ Inj (Solumedr (02/01/18 20:30) Naloxone Inj (Narcan Inj) (02/01/18 21:15) Naloxone Inj (Narcan Inj) (02/01/18 21:16) Labs Laboratory Tests Test 02/01/18 20:05 White Blood Count 5.8 TH/MM3 Red Blood Count 4.59 MIL/MM3 Hemoglobin 15.0 GM/DL Hematocrit 45.0 % Mean Corpuscular Volume 98.1 FL Mean Corpuscular Hemoglobin 32.7 PG Mean Corpuscular Hemoglobin Concent 33.3 % Red Cell Distribution Width 15.5 % Platelet Count 184 TH/MM3 Mean Platelet Volume 8.2 FL Neutrophils (%) (Auto) 62.0 % Lymphocytes (%) (Auto) 26.2 % Monocytes (%) (Auto) 10.1 % Eosinophils (%) (Auto) 1.1 % Basophils (%) (Auto) 0.6 % Neutrophils # (Auto) 3.6 TH/MM3 Lymphocytes # (Auto) 1.5 TH/MM3 Monocytes # (Auto) 0.6 TH/MM3 Eosinophils # (Auto) 0.1 TH/MM3 Basophils # (Auto) 0.0 TH/MM3 CBC Comment DIFF FINAL Differential Comment Prothrombin Time 9.9 SEC Prothromb Time International Ratio 1.0 RATIO Activated Partial Thromboplast Time 25.0 SEC Blood Urea Nitrogen 22 MG/DL Creatinine 1.45 MG/DL Random Glucose 72 MG/DL Total Protein 7.8 GM/DL Albumin 4.1 GM/DL Calcium Level 8.4 MG/DL Alkaline Phosphatase 78 U/L Aspartate Amino Transf (AST/SGOT) 44 U/L Alanine Aminotransferase (ALT/SGPT) 36 U/L Total Bilirubin 0.5 MG/DL Sodium Level 136 MEQ/L Potassium Level 4.0 MEQ/L Chloride Level 96 MEQ/L Carbon Dioxide Level 30.4 MEQ/L Anion Gap 10 MEQ/L Estimat Glomerular Filtration Rate 60 ML/MIN [facility] Medical Decision Making Medical Screen Exam Complete: Yes Emergency Medical Condition: Yes Differential Diagnosis Angioedema, allergic reaction, dental infection Narrative Course Vital signs reviewed. CBC is unremarkable. CMP is remarkable for BUN 22, creatinine 1.45, GFR 60. The patient was given IV Solu-Medrol and IV Benadryl without any improvement in his upper lip swelling. On reassessment the patient seems obtunded. He has pinpoint pupils. Chart review shows that the patient takes Dilaudid and morphine at home. He was given Narcan with significant improvement in mental status. Patient likely has angioedema secondary to lisinopril. This as well as oversedation from home opiates, I believe that the patient should be monitored in the ICU overnight. Case discussed with bank examiner Dr. Meeks who will admit the patient to his service. Diagnosis Primary Impression: Angioedema Qualified Codes: T78.3XXA - Angioneurotic edema, initial encounter Additional Impression: Opioid abuse Admitting Information Admitting Physician Requests: Admit Gautam Jefferson MD February 01, 2018 20:02
[2018-02-01] MEDS ORDERED: methylPREDNISolone SOD SUCC 125 MG/2 ML VIAL IV PUSH ONE (20:30)
[2018-02-01 20:33] LABS: AUTOMATED NEUTROPHIL # 3.6 TH/MM3 (1.8-7.7); BASOPHIL % 0.6 % (0.0-2.0); EOSINOPHIL # 0.1 TH/MM3 (0-0.4); EOSINOPHIL % 1.1 % (0.0-4.0); LYMPH % 26.2 % (9.0-44.0); LYMPHOCYTE # 1.5 TH/MM3 (1.0-4.8); MEAN CELL VOLUME 98.1 FL (80.0-100.0); MEAN CORPUSCULAR HEMOGLOBIN 32.7 PG (27.0-34.0); MEAN CORPUSCULAR HGB CONC 33.3 % (32.0-36.0); MEAN PLATELET VOLUME 8.2 FL (7.0-11.0); MONO % 10.1 % (0.0-8.0); MONOCYTE # 0.6 TH/MM3 (0-0.9); PLATELET COUNT 184 TH/MM3 (150-450); RED BLOOD COUNT 4.59 MIL/MM3 (4.50-5.90); RED CELL DISTRIBUTION WIDTH 15.5 % (11.6-17.2); WHITE BLOOD COUNT 5.8 TH/MM3 (4.0-11.0)
[2018-02-01 20:58] LABS: ALBUMIN 4.1 GM/DL (3.4-5.0); AST (GOT) 44 U/L (15-37); BICARBONATE 30.4 MEQ/L (21.0-32.0); BLOOD UREA NITROGEN 22 MG/DL (7-18); CALCIUM 8.4 MG/DL (8.5-10.1); CHLORIDE 96 MEQ/L (98-107); CREATININE 1.45 MG/DL (0.60-1.30); GLOMERULAR FILTRATION RATE 60 ML/MIN (>89); GLUCOSE,RANDOM 72 MG/DL (74-106); PROTHROMBIN TIME - PATIENT 9.9 SEC (9.8-11.6); SODIUM (NA) 136 MEQ/L (136-145)
[2018-02-01 21:02] LABS: ALKALINE PHOSPHATASE 78 U/L (45-117); ALT (GPT) 36 U/L (12-78); TOTAL BILIRUBIN ADULT 0.5 MG/DL (0.2-1.0); TOTAL PROTEIN 7.8 GM/DL (6.4-8.2)
[2018-02-01] MEDS ORDERED: NALOXONE HCL 0.4 MG/ML AMP IV PUSH ONE (21:15)
[2018-02-01] MEDS ORDERED: NALOXONE HCL 2 MG/2 ML VIAL ONE (21:16)
[2018-02-01 21:33] VITALS: BP 232/121; PULSE 89; O2SAT 100
--- NOTE | 2018-02-01 21:53 | HHI.HP ---
HPI Service Critical Care Medicine Primary Care Physician No Primary Care Physician Admission Diagnosis Angioedema, opioid overdose Diagnosis: Travel History International Travel<30 Days: No Contact w/Intl Traveler <30 Da: No Traveled to Known Affected Are: No History of Present Illness 62-year-old male presents to emergency department to [facility] with upper lip swelling. Symptoms started yesterday evening and has been persistent. He denies tongue swelling. No respiratory difficulties or difficulty swallowing. He is on an KINGSLEY inhibitor. Denies trauma. No pain. He has also been on multiple narcotic regimens for chronic pain syndrome and is quite obtunded during my evaluation. Review of Systems ROS Unable to obtain patient's obtunded Past Family Social History Allergies: Coded Allergies: No Known Allergies (Verified Allergy, Unknown, 02/01/18) Past Medical History CHF- 20% by echo HTN Gout CKD II Depression Obesity Chronic back pain Chronic right leg cellulitis. Past Surgical History umbilical hernia Reported Medications Reported Meds & Active Scripts Active Aspirin EC (Aspirin) 325 Mg Tabdr 325 Mg PO DAILY Furosemide 20 Mg Tab 20 Mg PO BID@ Potassium Chloride ER (Potassium Chloride) 10 Meq Cap 20 Meq PO DAILY Clonidine (Clonidine HCl) 0.2 Mg Tab 0.2 Mg PO BID Reported Morphine ER (Morphine Sulfate) 30 Mg Tab 30 Mg PO BID Dilaudid (Hydromorphone HCl) 4 Mg Tab 4 Mg PO Q6H PRN Active Ordered Medications Current Medications Medications (Trade) Dose Ordered Sig/Stefano Route PRN Reason Start Time Stop Time Status Last Admin Dose Admin Aspirin (Ecotrin Ec) 325 mg DAILY PO 02/02/18 09:00 Clonidine (Catapres) 0.2 mg BID PO 02/02/18 09:00 Furosemide (Lasix) 20 mg BID@09,18 PO 02/02/18 09:00 Hydromorphone HCl (Dilaudid) 4 mg Q6H PRN PO Pain Management 1-10 02/01/18 22:00 Morphine Sulfate (Oramorph Sr) 30 mg BID PO 02/02/18 09:00 Potassium Chloride (KCl) 20 meq DAILY PO 02/02/18 09:00 Sodium Chloride 1,000 ml @ 84 mls/hr [id number] IV 02/01/18 21:48 02/01/18 22:46 Sodium Chloride (NS Flush) 2 ml UNSCH PRN IV FLUSH FLUSH AFTER USING IV ACCESS 02/01/18 22:00 Sodium Chloride (NS Flush) 2 ml BID IV FLUSH 02/02/18 09:00 Acetaminophen (Tylenol) 650 mg Q6H PRN PO FEVER >101F 02/01/18 22:00 Famotidine (Pepcid Inj) 20 mg Q12HR IV PUSH 02/02/18 09:00 Ondansetron HCl (Zofran Odt) 4 mg Q6H PRN PO NAUSEA OR VOMITING 02/01/18 22:15 Albuterol/ Ipratropium (Duoneb Neb) 1 ampule Q2HR NEB PRN INH WHEEZING 02/01/18 22:00 Heparin Sodium (Porcine) (Heparin Inj) 5,000 units Q8H SQ 02/01/18 22:00 02/01/18 22:56 Miscellaneous Information ([facility] Nursing Information) 1 [id number] XX 02/01/18 22:00 02/01/18 22:00 Chlorhexidine Gluconate (Chlorhexidine 2% Cloth) 3 pack Taper DAILY@04 TOP 02/02/18 04:00 01/29/19 03:59 02/01/18 22:46 Chlorhexidine Gluconate (Chlorhexidine 2% Cloth) 3 pack UNSCH PRN TOP HYGIENIC CARE 02/01/18 22:00 Senna/Docusate Sodium (Darlene-Colace) 1 tab BID PO 02/02/18 09:00 Magnesium Hydroxide (Milk Of Magnesia Liq) 30 ml Q12H PRN PO Mild constipation 02/01/18 22:00 Sennosides (Senokot) 17.2 mg Q12H PRN PO Moderate constipation 02/01/18 22:00 Bisacodyl (Dulcolax Supp) 10 mg DAILY PRN RECTAL SEVERE CONSITIPATION 02/01/18 22:00 Lactulose (Lactulose Liq) 30 ml DAILY PRN PO SEVERE CONSITIPATION 02/01/18 22:00 Dexamethasone Sodium Phosphate (Decadron Inj) 10 mg Q24H IV PUSH 02/01/18 22:00 02/03/18 22:01 02/01/18 22:56 Diphenhydramine HCl (Benadryl Inj) 25 mg Q6H IV PUSH 02/02/18 03:00 02/03/18 09:01 Hydralazine HCl (Apresoline Inj) 20 mg Q4H PRN IV PUSH SBP>160, DBP>90 02/01/18 22:45 Labetalol HCl (Trandate Inj) 10 mg Q4H PRN IV PUSH SBP>160, DBP>90 02/01/18 22:45 02/01/18 22:58 Family History none that he knows of Social History never smoked cigarettes half a pint of gin daily no drugs Physical Exam Vital Signs Vital Signs Date Time Temp Pulse Resp B/P (MAP) Pulse Ox O2 Delivery O2 Flow Rate FiO2 02/01/18 21:33 89 232/121 (158) 100 02/01/18 19:11 66 19 199/93 (128) 95 Physical Exam GENERAL: Well-developed, well-nourished, awake, alert, no apparent distress. SKIN: Focused skin assessment warm/dry. HEAD: Atraumatic. Normocephalic. EYES: Pupils equal and round. No scleral icterus. No injection or drainage. ENT: Mucous membranes pink and moist. Significant upper lip swelling. Poor dentition. No fluctuance or induration. No tongue or lower lip swelling. Normal-appearing pharynx. No drooling or stridor. No trismus. NECK: Trachea midline. No JVD. CARDIOVASCULAR: Regular rate and rhythm. RESPIRATORY: No accessory muscle use. Clear to auscultation. Breath sounds equal bilaterally. GASTROINTESTINAL: Abdomen soft, non-tender, nondistended. MUSCULOSKELETAL: No obvious deformities. No clubbing. No cyanosis. No edema. NEUROLOGICAL: Obtunded but arousable. Nonfocal exam Laboratory Laboratory Tests Test 02/01/18 20:05 White Blood Count 5.8 Red Blood Count 4.59 Hemoglobin 15.0 Hematocrit 45.0 Mean Corpuscular Volume 98.1 Mean Corpuscular Hemoglobin 32.7 Mean Corpuscular Hemoglobin Concent 33.3 Red Cell Distribution Width 15.5 Platelet Count 184 Mean Platelet Volume 8.2 Neutrophils (%) (Auto) 62.0 Lymphocytes (%) (Auto) 26.2 Monocytes (%) (Auto) 10.1 Eosinophils (%) (Auto) 1.1 Basophils (%) (Auto) 0.6 Neutrophils # (Auto) 3.6 Lymphocytes # (Auto) 1.5 Monocytes # (Auto) 0.6 Eosinophils # (Auto) 0.1 Basophils # (Auto) 0.0 CBC Comment DIFF FINAL Differential Comment Prothrombin Time 9.9 Prothromb Time International Ratio 1.0 Activated Partial Thromboplast Time 25.0 Blood Urea Nitrogen 22 Creatinine 1.45 Random Glucose 72 Total Protein 7.8 Albumin 4.1 Calcium Level 8.4 Alkaline Phosphatase 78 Aspartate Amino Transf (AST/SGOT) 44 Alanine Aminotransferase (ALT/SGPT) 36 Total Bilirubin 0.5 Sodium Level 136 Potassium Level 4.0 Chloride Level 96 Carbon Dioxide Level 30.4 Anion Gap 10 Estimat Glomerular Filtration Rate 60 Result Diagram: 02/01/18200402/01/182004 Caprini VTE Risk Assessment Caprini VTE Risk Assessment: Mod/High Risk (score >= 2) Caprini Risk Assessment Model Point Value = 1 Point Value = 2 Point Value = 3 Point Value = 5 Age 41-60 Minor surgery BMI > 25 kg/m2 Swollen legs Varicose veins or History of unexplained or recurrent spontaneous Oral contraceptives or hormone replacement Sepsis (< 1 month) Serious lung disease, including pneumonia (< 1 month) Abnormal pulmonary function Acute myocardial infarction Congestive heart failure (< 1 month) History of inflammatory bowel disease Medical patient at bed rest Age 61-74 Arthroscopic surgery Major open surgery (> 45 min) Laparoscopic surgery (> 45 min) Malignancy Confined to bed (> 72 hours) Immobilizing plaster cast Central venous access Age >= 75 History of VTE Family history of VTE Factor V Leiden Prothrombin [id number] Lupus anticoagulant Anticardiolipin antibodies Elevated serum homocysteine Heparin-induced thrombocytopenia Other congenital or acquired thrombophilia Stroke (< 1 month) Elective arthroplasty Hip, pelvis, or leg fracture Acute spinal cord injury (< 1 month) Prophylaxis Regimen Total Risk Factor Score Risk Level Prophylaxis Regimen 0-1 Low Early ambulation 2 Moderate Order ONE of the following: *Sequential Compression Device (SCD) *Heparin 5000 units SQ BID 3-4 Higher Order ONE of the following medications: *Heparin 5000 units SQ TID *Enoxaparin/Lovenox 40 mg SQ daily (WT < 150 kg, CrCl > 30 mL/min) *Enoxaparin/Lovenox 30 mg SQ daily (WT < 150 kg, CrCl > 10-29 mL/min) *Enoxaparin/Lovenox 30 mg SQ BID (WT < 150 kg, CrCl > 30 mL/min) AND/OR *Sequential Compression Device (SCD) 5 or more Highest Order ONE of the following medications: *Heparin 5000 units SQ TID (Preferred with Epidurals) *Enoxaparin/Lovenox 40 mg SQ daily (WT < 150 kg, CrCl > 30 mL/min) *Enoxaparin/Lovenox 30 mg SQ daily (WT < 150 kg, CrCl > 10-29 mL/min) *Enoxaparin/Lovenox 30 mg SQ BID (WT < 150 kg, CrCl > 30 mL/min) AND *Sequential Compression Device (SCD) Assessment and Plan Assessment and Plan Angioedema -DC lisinopril -H1 and H2 blockers -Decadron -Admit to ICU for an airway observation CHF -20% by echo -Continue metoprolol and Lasix HTN -Metoprolol -Clonidine -Furosemide -Hydralazine and labetalol as needed to keep his BP less than 160 -DC KINGSLEY inhibitor due to angioedema CKD II -Gentle IV hydration while n.p.o. -Monitor urine output and creatinine and electrolyte levels Chronic back pain -Continue home regimen with p.o. Dilaudid and morphine MS DVT GI prophylaxis -Efren's and SCDs -Subcu heparin -Pepcid Critical Care: The total critical care time was 35 minutes. Time to perform other separately billable procedures was not included in the critical care time. Lazaro Meeks MD February 01, 2018 9:53 pm
[2018-02-01] MEDS ORDERED: NURSING INFORMATION XX SCH (22:00)
[2018-02-01] MEDS ORDERED: CHLORHEXIDINE GLUCONATE 2 % 1 PACK (2 CLOTHS) TOP PRN (22:00)
[2018-02-01] MEDS ORDERED: MAGNESIUM HYDROXIDE SUSP 30 ML CUP PO PRN (22:00)
[2018-02-01] MEDS ORDERED: ACETAMINOPHEN 325 MG TAB PO PRN (22:00)
[2018-02-01] MEDS ORDERED: BISACODYL 10 MG SUPP RECTAL PRN (22:00)
[2018-02-01] MEDS ORDERED: diphenhydrAMINE HCL 50 MG/ML VIAL IV PUSH SCH (22:00)
[2018-02-01] MEDS ORDERED: LACTULOSE SYRUP 20 GM/30 ML CUP PO PRN (22:00)
[2018-02-01] MEDS ORDERED: SENNOSIDES 8.6 MG TAB PO PRN (22:00)
[2018-02-01] MEDS ORDERED: RESP: ALBUTEROL 2.5 MG/IPRATROPIUM 0.5 MG NEB (PRN) INH (22:00)
[2018-02-01] MEDS ORDERED: ONDANSETRON ODT 4 MG TAB PO PRN (22:15)
[2018-02-01 22:30] VITALS: BP 223/113; PULSE 72; PULSE 75; RESP 9; TEMP 98.6; O2SAT 100
[2018-02-01] MEDS ORDERED: hydrALAZINE HCL 20 MG/ML VIAL IV PUSH PRN (22:45)
[2018-02-01] MEDS: CHLORHEXIDINE GLUCONATE 2 % 1 PACK (2 CLOTHS) TOP SCH (22:46)
[2018-02-01] MEDS: SODIUM CHLOR 0.9% 1000 ML INJ 1,000 ML IV SCH (22:46)
[2018-02-01] MEDS: HEPARIN SODIUM - SQ 10,000 UNITS/ML VIAL SQ SCH (22:56)
[2018-02-01] MEDS: DEXAMETHASONE SOD PHOS 20 MG/5 ML VIAL IV PUSH SCH (22:56)
[2018-02-01] MEDS: LABETALOL HCL 100 MG/20 ML VIAL IV PUSH PRN (22:58)
[2018-02-02] VITALS (9 sets, daily range): BP systolic 151–185; BP diastolic 74–91; PULSE 75–87; RESP 10–21; TEMP 97.9–98.6; O2SAT 95–100
[2018-02-02] MEDS: diphenhydrAMINE HCL 50 MG/ML VIAL IV PUSH SCH ×4 (03:05→20:01)
[2018-02-02] MEDS: LABETALOL HCL 100 MG/20 ML VIAL IV PUSH PRN ×2 (03:06→14:07)
[2018-02-02 04:09] LABS: AUTOMATED NEUTROPHIL # 5.4 TH/MM3 (1.8-7.7); BASOPHIL % 0.2 % (0.0-2.0); HEMOGLOBIN 15.1 GM/DL (13.0-17.0); LYMPH % 3.4 % (9.0-44.0); LYMPHOCYTE # 0.2 TH/MM3 (1.0-4.8); MEAN CELL VOLUME 97.8 FL (80.0-100.0); MEAN CORPUSCULAR HEMOGLOBIN 32.8 PG (27.0-34.0); MEAN CORPUSCULAR HGB CONC 33.6 % (32.0-36.0); MEAN PLATELET VOLUME 8.4 FL (7.0-11.0); MONO % 0.9 % (0.0-8.0); MONOCYTE # 0.1 TH/MM3 (0-0.9); NEUT % 95.5 % (16.0-70.0); PLATELET COUNT 178 TH/MM3 (150-450); RED CELL DISTRIBUTION WIDTH 15.3 % (11.6-17.2); WHITE BLOOD COUNT 5.7 TH/MM3 (4.0-11.0)
[2018-02-02] MEDS ORDERED: cloNIDine HCL 0.3 MG TAB PO ONE (04:15)
[2018-02-02 04:19] LABS: INTERNATIONAL NORMALIZED RATIO 0.9 RATIO; PROTHROMBIN TIME - PATIENT 9.6 SEC (9.8-11.6)
[2018-02-02] MEDS: HEPARIN SODIUM - SQ 10,000 UNITS/ML VIAL SQ SCH ×3 (04:25→20:01)
[2018-02-02 04:33] LABS: ALBUMIN 3.7 GM/DL (3.4-5.0); AST (GOT) 40 U/L (15-37); BICARBONATE 22.2 MEQ/L (21.0-32.0); BLOOD UREA NITROGEN 21 MG/DL (7-18); CALCIUM 8.2 MG/DL (8.5-10.1); CHLORIDE 99 MEQ/L (98-107); CREATININE 1.18 MG/DL (0.60-1.30); GLOMERULAR FILTRATION RATE 76 ML/MIN (>89); GLUCOSE,RANDOM 72 MG/DL (74-106); SODIUM (NA) 138 MEQ/L (136-145)
[2018-02-02 04:37] LABS: ALKALINE PHOSPHATASE 74 U/L (45-117); ALT (GPT) 33 U/L (12-78); TOTAL BILIRUBIN ADULT 0.5 MG/DL (0.2-1.0); TOTAL PROTEIN 7.2 GM/DL (6.4-8.2)
[2018-02-02] MEDS: HYDROmorphone HCL 4 MG TAB PO PRN ×3 (05:54→19:59)
[2018-02-02] MEDS: ASPIRIN EC 325 MG TABEC PO SCH (08:52)
[2018-02-02] MEDS: DOCUSATE SODIUM 50 MG/SENNA 8.6 MG TAB PO SCH ×2 (08:52→19:59)
[2018-02-02] MEDS: cloNIDine HCL 0.2 MG TAB PO SCH ×2 (08:52→19:59)
[2018-02-02] MEDS: MORPHINE SULFATE 30 MG CONTROLLED RELEASE TAB PO SCH ×2 (08:54→20:00)
[2018-02-02] MEDS: FUROSEMIDE 20 MG TAB PO SCH ×2 (08:54→17:22)
[2018-02-02] MEDS: POTASSIUM CHLORIDE 10 MEQ CAP PO SCH (08:54)
[2018-02-02] MEDS: FAMOTIDINE 20 MG/2 ML VIAL IV PUSH SCH ×2 (08:55→20:01)
[2018-02-02] MEDS: SODIUM CHLORIDE 0.9% FLUSH 10 ML FLUSH IV FLUSH SCH ×2 (08:55→20:01)
[2018-02-02] MEDS: SODIUM CHLOR 0.9% 1000 ML INJ 1,000 ML IV SCH (09:41)
[2018-02-02] MEDS: amLODIPine BESYLATE 5 MG TAB PO SCH (09:41)
--- NOTE | 2018-02-02 10:41 | HHI.PR ---
Subjective Remarks The patient said that he felt a lot better. He said he had less swelling. He did complain of a dental infection involving the left side of his mouth. He said he was on antibiotics previously for that. He also complains of an area of swelling and pain in his right lower leg. He is looking forward to eating something. Discussed with nursing. Objective Vitals Vital Signs Date Time Temp Pulse Resp B/P (MAP) Pulse Ox O2 Delivery O2 Flow Rate FiO2 02/02/18 08:00 98.4 85 21 158/80 (106) 100 02/02/18 06:00 80 02/02/18 04:00 98.6 86 14 183/87 (119) 100 02/02/18 04:00 87 02/02/18 02:00 80 02/02/18 00:37 97 02/02/18 00:00 98.6 75 10 151/74 (99) 95 02/02/18 00:00 76 02/01/18 22:58 02/01/18 22:30 98.6 72 9 223/113 (149) 100 02/01/18 22:30 75 02/01/18 21:33 89 232/121 (158) 100 02/01/18 19:11 66 19 199/93 (128) 95 I/O 02/01/18 02/01/18 02/01/18 02/02/18 02/02/18 02/02/18 07:00 15:00 23:00 07:00 15:00 23:00 Intake Total 60 ml Output Total 1500 ml Balance -1440 ml Intake Oral 60 ml Output Urine Total 1500 ml # Bowel Movements 0 Result Diagram: 02/02/18 0335 02/02/18 0335 Objective Remarks GENERAL: Well-developed, well-nourished, no apparent distress. SKIN: Focused skin assessment warm/dry. HEAD: Atraumatic. Normocephalic. EYES: Pupils equal and round. No scleral icterus. No injection or drainage. ENT: Mucous membranes pink and moist. Significant upper lip swelling. Poor dentition. No fluctuance or induration. No tongue or lower lip swelling. Normal-appearing pharynx. No drooling or stridor. No trismus. NECK: Trachea midline. No JVD. CARDIOVASCULAR: Regular rate and rhythm. RESPIRATORY: No accessory muscle use. Clear to auscultation. Breath sounds equal bilaterally. GASTROINTESTINAL: Abdomen soft, non-tender, nondistended. MUSCULOSKELETAL: No obvious deformities. No clubbing. No cyanosis. Three mass like areas on right leg, tender to touch. NEUROLOGICAL: Awake and alert. A/P Assessment and Plan Angioedema Improved. - DC lisinopril - H1 and H2 blockers - IV Decadron - ADAT CHF Appears euvolemic. EF 20% by echo. - Continue metoprolol and Lasix. HTN BP elevated. - continue metoprolol, clonidine, Furosemide. - Hydralazine and labetalol as needed to keep his BP less than 160 - DC KINGSLEY inhibitor due to angioedema - start amlodipine. CKD II Improved. -Monitor urine output and creatinine and electrolyte levels Chronic back pain Sees pain specialist. -Continue home regimen with p.o. Dilaudid and morphine MS Leg pain/ swelling Concern for varicose veins vs abscess on right leg. - US pending. Tooth infection Left upper tooth, posterior location. - Augmentin. - will need dental follow-up. DVT GI prophylaxis -Efren's and SCDs -Subcu heparin -Joel Orta DO February 02, 2018 10:41
--- NOTE | 2018-02-02 13:25 | RADRPT ---
EXAM DATE: 02/02/2018 1:17 PM EDT AGE/SEX: 62 years / Male INDICATIONS: Right leg palpable mass. CLINICAL DATA: This is the patient's initial encounter. Patient reports that signs and symptoms have been present for 3 days and indicates a pain score of 4/10. Location: Laterality: MEDICAL/SURGICAL HISTORY: Congestive heart failure. Hypercholesterolemia. Hypertension. Nabil nary artery disease. Gout. Substance abuse. Chronic kidney disease.Right leg cellulitis. Umbilical h ernia repair. Right hand surgery. COMPARISON: [facility]. FINDINGS: A focused ultrasound over the palpable area was performed. This is along the mid medial right calf. T here appears to be thrombus within the greater saphenous vein which extends from the ankle up to the proximal upper leg. CONCLUSION: 1. There is occlusive thrombus in the greater saphenous vein. 2. Recommend dedicated Doppler exam of the right lower leg for DVT. Electronically signed by: Daniel Chopra MD 02/02/2018 1:24 PM EDT
[2018-02-02] MEDS: AMOXICILLIN/CLAVULANATE K 875 MG TAB PO SCH ×2 (14:05→23:53)
[2018-02-02] MEDS: DEXAMETHASONE SOD PHOS 20 MG/5 ML VIAL IV PUSH SCH (20:00)
--- NOTE | 2018-02-02 23:06 | RADRPT ---
EXAM DATE: 02/02/2018 10:54 PM EDT AGE/SEX: 62 years / Male INDICATIONS: Right leg emboli. CLINICAL DATA: This is the patient's initial encounter. Patient reports that signs and symptoms have been present for 2 weeks and indicates a pain score of 8/10. MEDICAL/SURGICAL HISTORY: Congestive heart failure. Hypercholesterolemia. Coronary artery dise ase. HTN. Gout. Hay fever. Anxiety. Umbilical hernia repair. Right hand surgery. Varicose vein surg radha. COMPARISON: . No external comparison. TECHNIQUE: Venous ultrasound of both lower extremities was performed from the inguinal ligament to t he proximal calf. Real-time, color Doppler and spectral tracing, compression and augmentation techni ques were used. FINDINGS: There is normal compressibility of the deep venous system from the inguinal region to the proximal ca lf. No echogenic clot is seen in the lumen of the common femoral, femoral, popliteal, and posterior tibial veins. There is a normal response of the venous system to proximal and distal augmentation an d respiration. There is thrombus within the greater saphenous vein at the calf. The vein is enlarged consistent wit h an acute thrombus. CONCLUSION: Acute-appearing thrombus in the greater saphenous vein in the calf. The remaining visualized venous s tructures appear patent. Electronically signed by: Parrish Hendrix MD 02/02/2018 11:05 PM EDT
[2018-02-02] MEDS ORDERED: cloNIDine HCL 0.1 MG TAB PO ONE (23:45)
[2018-02-03] VITALS (7 sets, daily range): BP systolic 178–227; BP diastolic 86–107; PULSE 66–76; RESP 17–20; TEMP 97.4–98.1; O2SAT 98–99
[2018-02-03] MEDS: CHLORHEXIDINE GLUCONATE 2 % 1 PACK (2 CLOTHS) TOP SCH (02:21)
[2018-02-03] MEDS: diphenhydrAMINE HCL 50 MG/ML VIAL IV PUSH SCH ×2 (02:21→08:42)
[2018-02-03] MEDS: HYDROmorphone HCL 4 MG TAB PO PRN ×2 (02:22→14:00)
[2018-02-03 04:08] LABS: HEMATOCRIT 40.8 % (39.0-51.0); HEMOGLOBIN 13.8 GM/DL (13.0-17.0); MEAN CELL VOLUME 98.3 FL (80.0-100.0); MEAN CORPUSCULAR HEMOGLOBIN 33.4 PG (27.0-34.0); MEAN CORPUSCULAR HGB CONC 33.9 % (32.0-36.0); MEAN PLATELET VOLUME 8.7 FL (7.0-11.0); PLATELET COUNT 162 TH/MM3 (150-450); RED BLOOD COUNT 4.15 MIL/MM3 (4.50-5.90); RED CELL DISTRIBUTION WIDTH 15.6 % (11.6-17.2); WHITE BLOOD COUNT 7.5 TH/MM3 (4.0-11.0)
[2018-02-03 04:32] LABS: BICARBONATE 25.9 MEQ/L (21.0-32.0); CALCIUM 7.7 MG/DL (8.5-10.1); CREATININE 1.33 MG/DL (0.60-1.30); MAGNESIUM 2.3 MG/DL (1.5-2.5)
[2018-02-03] MEDS ORDERED: hydrALAZINE HCL 50 MG TAB PO ONE (05:15)
[2018-02-03] MEDS: HEPARIN SODIUM - SQ 10,000 UNITS/ML VIAL SQ SCH ×3 (05:21→20:39)
[2018-02-03] MEDS: amLODIPine BESYLATE 5 MG TAB PO SCH (08:41)
[2018-02-03] MEDS: FUROSEMIDE 20 MG TAB PO SCH ×2 (08:41→18:39)
[2018-02-03] MEDS: FAMOTIDINE 20 MG/2 ML VIAL IV PUSH SCH (08:41)
[2018-02-03] MEDS: DOCUSATE SODIUM 50 MG/SENNA 8.6 MG TAB PO SCH ×2 (08:41→20:37)
[2018-02-03] MEDS: ASPIRIN EC 325 MG TABEC PO SCH (08:42)
[2018-02-03] MEDS: MORPHINE SULFATE 30 MG CONTROLLED RELEASE TAB PO SCH ×2 (08:42→20:45)
[2018-02-03] MEDS: cloNIDine HCL 0.2 MG TAB PO SCH (08:42)
[2018-02-03] MEDS: POTASSIUM CHLORIDE 10 MEQ CAP PO SCH (08:43)
[2018-02-03] MEDS: SODIUM CHLORIDE 0.9% FLUSH 10 ML FLUSH IV FLUSH SCH ×2 (08:43→20:40)
[2018-02-03] MEDS ORDERED: amLODIPine BESYLATE 5 MG TAB PO ONE (10:45)
[2018-02-03] MEDS ORDERED: FLUMAZENIL 0.5 MG/5 ML VIAL IV PUSH PRN (11:00)
[2018-02-03] MEDS ORDERED: LORazepam 1 MG TAB PO PRN (11:00)
[2018-02-03] MEDS ORDERED: LORazepam 2 MG TAB PO PRN (11:00)
[2018-02-03] MEDS ORDERED: IBUPROFEN 600 MG TAB PO PRN (11:00)
[2018-02-03] MEDS ORDERED: LORazepam 2 MG/ML VIAL IV PUSH PRN ×2 (11:00)
--- NOTE | 2018-02-03 11:03 | HHI.PR ---
Subjective Remarks The patient wanted to go home. He said that he feels like he is withdrawing from alcohol. He says he is done drinking. Discussed with nursing at the bedside. Objective Vitals Vital Signs Date Time Temp Pulse Resp B/P (MAP) Pulse Ox O2 Delivery O2 Flow Rate FiO2 02/03/18 08:00 97.5 76 18 200/98 (132) 99 02/03/18 04:00 68 02/03/18 04:00 68 20 219/107 (144) 99 02/03/18 00:00 97.4 73 20 227/106 (146) 99 02/03/18 00:00 73 02/02/18 20:00 98.3 77 20 184/91 (122) 96 02/02/18 20:00 77 02/02/18 16:00 97.9 80 18 185/86 (119) 100 02/02/18 12:00 98.2 84 21 163/77 (105) 100 02/02/18 12:00 84 I/O 02/02/18 02/02/18 02/02/18 02/03/18 02/03/18 02/03/18 06:59 14:59 22:59 06:59 14:59 22:59 Intake Total 60 ml 300 ml Output Total 1500 ml 650 ml 1450 ml Balance -1440 ml -650 ml 300 ml -1450 ml Intake Oral 60 ml 300 ml Output Urine Total 1500 ml 650 ml 1450 ml # Voids 1 # Bowel Movements 0 0 1 Result Diagram: 02/03/18 0344 02/03/18 0344 Imaging Last Impressions Lower Extremity Ultrasound 02/02/18 0000 Signed Impressions: CONCLUSION: Objective Remarks GENERAL: Well-developed, well-nourished, no apparent distress. SKIN: Focused skin assessment warm/dry. HEAD: Atraumatic. Normocephalic. EYES: Pupils equal and round. No scleral icterus. No injection or drainage. ENT: Mucous membranes pink and moist. Significant upper lip swelling. Poor dentition. No fluctuance or induration. No tongue or lower lip swelling. Normal-appearing pharynx. No drooling or stridor. No trismus. NECK: Trachea midline. No JVD. CARDIOVASCULAR: Regular rate and rhythm. RESPIRATORY: No accessory muscle use. Clear to auscultation. Breath sounds equal bilaterally. GASTROINTESTINAL: Abdomen soft, non-tender, nondistended. MUSCULOSKELETAL: No obvious deformities. No clubbing. No cyanosis. Three mass like areas on right leg, tender to touch. NEUROLOGICAL: Awake and alert. A/P Assessment and Plan Angioedema Improved. - DC lisinopril - H1 and H2 blockers - IV Decadron - ADAT CHF Appears euvolemic. EF 20% by echo. - Continue cardiac regimen. Hypertensive urgency BP elevated with systolic over 200. - continue Coreg and clonidine. - DC KINGSLEY inhibitor due to angioedema - increase amlodipine. CKD II Improved. - Monitor urine output and creatinine and electrolyte levels. - hold Lasix for now. Chronic back pain Sees pain specialist. - Continue home regimen with p.o. Dilaudid and morphine MS Leg pain/ swelling US with thrombophlebitis of the great saphenous vein. - Supportive care. Tooth infection Left upper tooth, posterior location. - Augmentin. - will need dental follow-up. Hyperglycemia Likely s/t steroids. - check A1c. DVT GI prophylaxis -Efren's and SCDs -Subcu heparin -Pepcid Discharge Planning Discharge home later today if blood pressure controlled Joel Nguyễn DO February 03, 2018 11:03
[2018-02-03] MEDS: CARVEDILOL 12.5 MG TAB PO SCH ×2 (11:14→20:38)
[2018-02-03] MEDS: AMOXICILLIN/CLAVULANATE K 875 MG TAB PO SCH (11:14)
[2018-02-03] MEDS: cloNIDine HCL 0.1 MG TAB PO PRN ×2 (12:21→18:38)
[2018-02-03] MEDS ORDERED: cloNIDine HCL 0.1 MG TAB PO ONE (14:45)
[2018-02-03] MEDS: cloNIDine HCL 0.3 MG TAB PO SCH (20:37)
[2018-02-03] MEDS: FAMOTIDINE 20 MG TAB PO SCH (20:37)
[2018-02-03] MEDS: DEXAMETHASONE SOD PHOS 20 MG/5 ML VIAL IV PUSH SCH (20:39)
[2018-02-04] VITALS: BP_SYST 218; BP_SYST 221; BP_DIAS 99; PULSE 67; RESP 18; TEMP 98.1; O2SAT 95
[2018-02-04] MEDS: CHLORHEXIDINE GLUCONATE 2 % 1 PACK (2 CLOTHS) TOP SCH (00:17)
[2018-02-04] MEDS: cloNIDine HCL 0.1 MG TAB PO PRN (00:17)
[2018-02-04] MEDS: AMOXICILLIN/CLAVULANATE K 875 MG TAB PO SCH ×2 (00:17→12:49)
[2018-02-04] MEDS: HYDROmorphone HCL 4 MG TAB PO PRN ×3 (00:21→12:53)
[2018-02-04 01:29] VITALS: BP 193/92; PULSE 68
[2018-02-04 04:00] VITALS: BP_SYST 230; BP_SYST 232; BP_DIAS 111; BP_DIAS 99; PULSE 68; RESP 18; TEMP 97.5; O2SAT 97
[2018-02-04] MEDS: HEPARIN SODIUM - SQ 10,000 UNITS/ML VIAL SQ SCH ×2 (05:38→12:50)
[2018-02-04 06:27] VITALS: BP 138/74; PULSE 70
[2018-02-04 07:23] LABS: BICARBONATE 27.3 MEQ/L (21.0-32.0); CREATININE 1.22 MG/DL (0.60-1.30); MAGNESIUM 2.1 MG/DL (1.5-2.5)
[2018-02-04] MEDS: cloNIDine HCL 0.3 MG TAB PO SCH (08:32)
[2018-02-04] MEDS: CARVEDILOL 12.5 MG TAB PO SCH (08:32)
[2018-02-04] MEDS: MORPHINE SULFATE 30 MG CONTROLLED RELEASE TAB PO SCH (08:32)
[2018-02-04] MEDS: DOCUSATE SODIUM 50 MG/SENNA 8.6 MG TAB PO SCH (08:32)
[2018-02-04] MEDS: FAMOTIDINE 20 MG TAB PO SCH (08:32)
[2018-02-04] MEDS: ASPIRIN EC 325 MG TABEC PO SCH (08:33)
[2018-02-04] MEDS: POTASSIUM CHLORIDE 10 MEQ CAP PO SCH (08:33)
[2018-02-04] MEDS: FUROSEMIDE 20 MG TAB PO SCH (08:33)
[2018-02-04] MEDS: SODIUM CHLORIDE 0.9% FLUSH 10 ML FLUSH IV FLUSH SCH (08:51)
[2018-02-04] MEDS ORDERED: amLODIPine BESYLATE 5 MG TAB PO SCH (09:00)
[2018-02-04] MEDS ORDERED: DOXAZOSIN MESYLATE 1 MG TAB PO SCH (11:00)
[2018-02-04 12:00] VITALS: BP 150/85; PULSE 71; RESP 18; TEMP 97.7; O2SAT 99
[2018-02-04] MEDS ORDERED: CARV12.5 PO (12:51)
[2018-02-04] MEDS ORDERED: CARD1TAB PO (12:51)
[2018-02-04] MEDS ORDERED: AMLO5 PO (12:51)
[2018-02-04] MEDS ORDERED: AMOX875T2 PO (12:51)
[2018-02-04] MEDS ORDERED: CLON-481 PO (12:51)
--- NOTE | 2018-02-04 15:09 | HHI.DCPOC ---
Discharge Care Plan Diagnosis: (1) Chronic Renal Failure / insufficiency, unspec (2) Hypertension (3) Angioedema Goals to Promote Your Health * To prevent worsening of your condition and complications * To maintain your health at the optimal level Directions to Meet Your Goals Take your medications as prescribed Follow your dietary instruction Follow activity as directed Keep your appointments as scheduled Take your immunizations and boosters as scheduled If your symptoms worsen call your PCP, if no PCP go to Urgent Care Center or Emergency Room Smoking is Dangerous to Your Health. Avoid second hand smoke Call the 24-hour hour crisis hotline for domestic abuse at Joel Nguyễn DO February 04, 2018 15:09
--- NOTE | 2018-02-04 15:17 | HHI.DS ---
Discharge Summary Admission Date February 01, 2018 at 21:47 Discharge Date: February 04, 2018 Admitting Diagnosis Angioedema, opioid overdose (1) Hypertension ICD Code: I10 - Hypertension Diagnosis: Principal Status: Acute (2) Chronic Renal Failure / insufficiency, unspec Status: Chronic (3) Angioedema ICD Code: T78.3XXA - Angioneurotic edema, initial encounter Diagnosis: Principal Status: Acute Procedures None Brief History - From Admission 62-year-old male presents to emergency department to [facility] with upper lip swelling. Symptoms started yesterday evening and has been persistent. He denies tongue swelling. No respiratory difficulties or difficulty swallowing. He is on an KINGSLEY inhibitor. Denies trauma. No pain. He has also been on multiple narcotic regimens for chronic pain syndrome and is quite obtunded during my evaluation. CBC/BMP: 02/03/18 0344 02/04/18 0602 Significant Findings Laboratory Tests Test 02/01/18 20:05 02/01/18 22:30 02/02/18 01:10 02/02/18 03:35 Monocytes (%) (Auto) 10.1 % (0.0-8.0) Blood Urea Nitrogen 22 MG/DL (7-18) 21 MG/DL (7-18) Creatinine 1.45 MG/DL (0.60-1.30) Random Glucose 72 MG/DL (74-106) 72 MG/DL (74-106) Calcium Level 8.4 MG/DL (8.5-10.1) 8.2 MG/DL (8.5-10.1) Aspartate Amino Transf (AST/SGOT) 44 U/L (15-37) 40 U/L (15-37) Chloride Level 96 MEQ/L (98-107) Estimat Glomerular Filtration Rate 60 ML/MIN (>89) 76 ML/MIN (>89) Urine Opiates Screen POS (NEG) Neutrophils (%) (Auto) 95.5 % (16.0-70.0) Lymphocytes (%) (Auto) 3.4 % (9.0-44.0) Lymphocytes # (Auto) 0.2 TH/MM3 (1.0-4.8) Prothrombin Time 9.6 SEC (9.8-11.6) Activated Partial Thromboplast Time 24.0 SEC (24.3-30.1) Anion Gap 17 MEQ/L (5-15) Test 02/03/18 03:44 02/04/18 06:02 Red Blood Count 4.15 MIL/MM3 (4.50-5.90) Blood Urea Nitrogen 19 MG/DL (7-18) Creatinine 1.33 MG/DL (0.60-1.30) Random Glucose 255 MG/DL (74-106) 220 MG/DL (74-106) Calcium Level 7.7 MG/DL (8.5-10.1) 8.0 MG/DL (8.5-10.1) Sodium Level 135 MEQ/L (136-145) Estimat Glomerular Filtration Rate 66 ML/MIN (>89) 73 ML/MIN (>89) Chloride Level 97 MEQ/L (98-107) Imaging Last Impressions Lower Extremity Ultrasound 02/02/18 0000 Signed Impressions: CONCLUSION: Acute-appearing thrombus in the greater saphenous vein in the calf. The remaini ng visualized venous structures appear patent. PE at Discharge GENERAL: Well-developed, well-nourished, no apparent distress. SKIN: Focused skin assessment warm/dry. HEAD: Atraumatic. Normocephalic. EYES: Pupils equal and round. No scleral icterus. No injection or drainage. ENT: Mucous membranes pink and moist. Significant upper lip swelling. Poor dentition. No fluctuance or induration. No tongue or lower lip swelling. Normal-appearing pharynx. No drooling or stridor. No trismus. NECK: Trachea midline. No JVD. CARDIOVASCULAR: Regular rate and rhythm. RESPIRATORY: No accessory muscle use. Clear to auscultation. Breath sounds equal bilaterally. GASTROINTESTINAL: Abdomen soft, non-tender, nondistended. MUSCULOSKELETAL: No obvious deformities. No clubbing. No cyanosis. Three mass like areas on right leg, tender to touch. NEUROLOGICAL: Awake and alert. Pt update on day of discharge The patient was feeling well and wanted to go home. He said that his leg was feeling a lot better. He liked having the compression stockings. He says his blood pressure has been better. Discussed with nursing. Hospital Course Angioedema We discontinued his lisinopril. We placed him on H1 and H2 blockers. He received IV Decadron. His symptoms have improved. He will follow up with his PCP. Hypertensive urgency/ CKD BP elevated with systolic over 200 at times. We continued Coreg 25 mg BID. We increased clonidine to 0.3 mg BID. We discontinued his KINGSLEY inhibitor s/t angioedema. We added amlodipine 10 mg daily as well as doxazosin 1 mg daily. He will be referred to nephrology for further workup. Chronic back pain He sees a pain specialist. We continued his home regimen of PO Dilaudid and long acting morphine. He was interested in switching his pain medications and will follow up with his pain specialist as an outpt. Leg pain/ swelling US with thrombophlebitis of the great saphenous vein. He received supportive care. He will continue using compression stockings and will take ibuprofen as needed. Tooth infection He has had problems with this tooth before. He will complete a course of Augmentin. He will need dental follow-up. Pt Condition on Discharge: Stable Discharge Disposition: Discharge Home Discharge Time: > 30 minutes Discharge Instructions DIET: Follow Instructions for: Heart Healthy Diet Activities you can perform: Regular-No Restrictions Follow up Referrals: Dental - 1 Week Nephrology - 1 Week PCP Follow-up - 1 Week New Medications: Amlodipine (Norvasc) 5 Mg Tab 10 MG PO DAILY for Blood Pressure Management, #60 TAB Amoxicillin-Clavulanate (Amoxicillin-Clavulanate) 875-125 mg Tab 875 MG PO Q12H for Infection for 5 Days, TAB not for use in CrCl <30 mL/minute Carvedilol (Coreg) 12.5 Mg Tab 25 MG PO Q12HR for Blood Pressure Management, #120 TAB Clonidine (Catapres) 0.3 Mg Tab 0.3 MG PO BID for Blood Pressure Management, #60 TAB Doxazosin (Cardura) 1 Mg Tab 1 MG PO DAILY for Blood Pressure Management, #30 TAB Continued Medications: Aspirin DR (Aspirin EC) 325 Mg Tabdr 325 MG PO DAILY for Prevent Blood Clot, #30 TAB Furosemide (Furosemide) 20 Mg Tab 20 MG PO BID@09,18 for Prevent Heart Failure, #60 TAB 11 Refills Hydromorphone (Dilaudid) 4 Mg Tab 4 MG PO Q6H PRN for Pain Management, TAB 0 Refills Morphine ER (Morphine ER) 30 Mg Tab 30 MG PO BID for Pain Management, TAB 0 Refills Potassium Chloride ER (Potassium Chloride ER) 10 Meq Cap 20 MEQ PO DAILY for Electrolyte Replacement, #30 CAP 11 Refills Discontinued Medications: Clonidine (Clonidine) 0.2 Mg Tab 0.2 MG PO BID for Blood Pressure Management, #60 TAB 11 Refills Joel Nguyễn DO February 04, 2018 15:17
== END 2018-02-04 15:59 | disposition home or self-care (01) | DRG 916 ==
LOC: NEPD 19:03 → NEDA 21:47 → HIME 22:30 → N07A 02-02 14:47
PROVIDERS: ADMIT Hospitalist; ATTEND Hospitalist
DX: T78.3XXA Angioneurotic edema, initial encounter (principal); I13.0 Hypertensive heart and chronic kidney disease with heart failure and stage 1 through stage 4 chronic kidney disease, or unspecified chronic kidney disease; I50.9 Heart failure, unspecified; L03.115 Cellulitis of right lower limb; I82.811 Embolism and thrombosis of superficial veins of right lower extremity; T46.4X5A Adverse effect of angiotensin-converting-enzyme inhibitors, initial encounter; F11.10 Opioid abuse, uncomplicated; N18.2 Chronic kidney disease, stage 2 (mild); K04.7 Periapical abscess without sinus; F41.9 Anxiety disorder, unspecified; I16.0 Hypertensive urgency; E78.00 Pure hypercholesterolemia, unspecified; E66.9 Obesity, unspecified; G89.29 Other chronic pain; M54.9 Dorsalgia, unspecified; M79.661 Pain in right lower leg; R73.9 Hyperglycemia, unspecified; K59.00 Constipation, unspecified; Z68.34 Body mass index [BMI] 34.0-34.9, adult; Z79.891 Long term (current) use of opiate analgesic
CPT/HCPCS: 76882; 80048; 80053; 80307; 83036; 83735; 84100; 85025; 85027; 85610; 85730; 87641; 93971; 96374; 96375; J1100; J1200; J1644; J2310; J2930; J7030